=== PATIENT | female | born 1985 | race Caucasian/White ===

== ENCOUNTER 2023-06-26 08:03 | Outpatient (CLI) | payer BC | END 2023-06-26 08:04 | disposition home or self-care (01) | LOC: CSHULT 08:03 | PROVIDERS: ATTEND Obstetrics & Gynecology | DX: N63.25 Unspecified lump in the left breast, overlapping quadrants (principal) ==

== ENCOUNTER 2024-02-05 10:08 | Outpatient (CLI) | payer BC ==
[2024-02-05] MEDS ORDERED: Magnevist 469MG/ML 20 ML VIAL ONE (13:33)
== END 2024-02-05 10:09 | disposition home or self-care (01) ==
LOC: CSHMRI 10:08
PROVIDERS: ATTEND Psychiatry & Neurology Neurology
DX: R51.9 Headache, unspecified (principal)
CPT/HCPCS: 70553; 76377; A9579